=== PATIENT | male | born 1995 | race African-American/Black ===

== ENCOUNTER 2018-08-19 17:21 | Emergency (ER) | payer MEDICAID ==
[~2018-08-19] VITALS: Ht 182.9 cm; Wt 74.8 kg
[~2018-08-19 17:21] MED LIST: ADVAIR 100-501 EACH INH; ALBUTEROL SULF8.5 GM INH; PROAIR HFA8.5 GM INH
[2018-08-19 17:25] VITALS: BP 131/80
[2018-08-19] MEDS ORDERED: Tetanus/Diptheria/Pertussis Vaccine 0.5ml Syr IM ONE (17:45)
[2018-08-19] MEDS ORDERED: Bacitracin Oint UD TOPIC ONE (17:45)
[2018-08-19] MEDS ORDERED: LET 3ml Soln TOPIC ONE (17:45)
--- NOTE | 2018-08-19 17:47 | Emergency Room Report ---
History of Present Illness General Chief Complaint: Upper Extremity Injury Source: Patient Present Illness HPI 22-year-old male patient presents ER complaining of pain and left hand ring finger for 2 days. 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 Reports pain and swelling of left hand near nail. Denies nail avulsion. Reports he is ambidextrous, states he writes with his right hand. Reports took ibuprofen for pain, last dose given "a few hours ago". Denies loss of range of motion. Denies fever, chest pain, shortness of breath. States does not know tetanus vaccination status. Allergies: Coded Allergies: No Known Allergies (Unverified , 06/13/14) Patient History Past Medical History: see triage record Reviewed Nursing Documentation: PMH: Agreed; PSxH: Agreed Nursing Documentation-PMH Past Medical History: No History, Except For Hx Asthma: Yes Review of Systems All Other Systems: negative except mentioned in HPI Physical Exam Vital Signs Date Time Temp Pulse Resp B/P (MAP) Pulse Ox O2 Delivery O2 Flow Rate FiO2 08/19/18 17:23 98.8 76 131/80 99 Room Air Sp02 EP Interpretation: reviewed, normal General Appearance: well appearing, no apparent distress, alert, GCS 15, non- toxic Head: normocephalic, atraumatic Eyes: bilateral eye normal inspection, bilateral eye PERRL ENT: hearing grossly normal, normal pharynx, no angioedema, normal voice, uvula midline, moist mucus membranes Neck: full range of motion Respiratory: lungs clear, normal breath sounds, no rhonchi, no respiratory distress, no accessory muscle use, no wheezing, speaking full sentences Cardiovascular #1: regular rate, rhythm, no edema Cardiovascular #2: 2+ radial (R), 2+ radial (L) Musculoskeletal: back normal, digits/nails normal, gait/station normal, normal range of motion, non-tender, other - left hand ring finger: obvious paronychia, cuticle intact, fluctuant, not hemorrhagic, no drainage, no erythema, full range of motion of PIP and DIP joint with flexion and extension, cap refill less than 2 seconds, no subinguinal hematoma, no felon Skin: no rash Procedures Incision and Drainage Incision and Drainage : Consent: Verbal Site: left ring finger Blade Size: 11 I & D Procedure: betadine prep, sterile drapes applied, sterile dressing applied Wound Location: upper extremity - left hand Wound's Depth, Shape: superficial Wound Length (cm): 1 Wound Explored: contaminated Anesthesia: other - LET topical Splint Applied?: No Sling Applied?: No Patient Tolerated: Well Complications: None Medical Decision Making PA Attestation Dr. Jacobson is my supervising Physician whom patient management has been discussed with. Diagnostic Impression: Primary Impression: Paronychia ER Course Pt. presents to the ED c/o left ring finger pain. Ddx considered but are not limited to rash, cellulitis, abscess, felon, paronychia, hangnail, herpetic isis, flexor tenosynovitis. negative Kanavel signs, low suspicion for flexor tenosynovitis. Vital signs: are WNL, pt. is afebrile ED COURSE: updated tetanus and provided with pain medication. x-ray of left hand soft tissue swelling, no acute fracture per the preliminary reading. LET used for local anesthesia. I&D of paronychia performed. Pus expressed from finger. see procedure note. Patient finger no longer swollen, patient reports decrease in pain symptoms. Sterile dressing and Bacitracin applied to wound following procedure. Patient instructed to keep wound clean and dry and to follow-up with primary care provider in 2 days for wound check. ER precautions given. DISCHARGE -Rx provided for Bactrim Rx provided for clindamycin -Rx provided for Tylenol #3. site of present is, do not drink, drive, operate heavy machinery while taking medication. CURES reviewed. At this time pt. is stable for d/c to home. Patient resting comfortably, in no acute distress, nontoxic appearing, laughing and smiling. Will provide printed patient care instructions and any necessary prescriptions. Care plan and follow up instructions have been discussed with the patient prior to discharge. Patient instructed to follow-up with primary care provider in 2 - 3 days for wound recheck. Patient questions asked and answered. Patient reports understanding and agreement to treatment plan. ER precautions given. Patient instructed to return to ER immediately for any new or worsening of symptoms including but not limited to fever, worsening of pain symptoms, worsening of erythema, red streaking. - Please note that this Emergency Department Report was dictated using [employer] artist technology software, occasionally this can lead to erroneous entry secondary to interpretation by the dictation equipment. Other X-Ray Diagnostic Results Other X-Ray Diagnostic Results : X-Ray ordered: left hand # of Views/Limited Vs Complete: 3 View Indication: Pain EP Interpretation: Yes PA Xray: Interpretation reviewed, by supervising MD, and agrees with findings. Interpretation: no dislocation, no fractures, other - Soft tissue swelling Impression: No acute disease KG Scribdarryl Text Elliott Mars PA-Tawanna Last Vital Signs Date Time Temp Pulse Resp B/P (MAP) Pulse Ox O2 Delivery O2 Flow Rate FiO2 08/19/18 17:23 98.8 76 131/80 99 Room Air Status: improved Disposition: HOME, SELF-CARE Condition: Stable Scripts Bacitracin/Polymyxin B Sulfate (BACITRACIN-POLYMYXIN OINTMENT) 28.35 Gm Oint...g. 1 APPLIC TP BID, #28 GM Prov: Efrain Mars 08/19/18 Acetaminophen With Codeine (T#3) (TYLENOL #3 TAB*) Y Tab 1 TAB ORAL Q6HR PRN for For Pain, #10 TAB Prov: Efrain Mars 08/19/18 Clindamycin Hcl (CLINDAMYCIN HCL) 300 Mg Capsule 300 MG ORAL TID for 7 Days, #21 CAP Prov: Efrain Mars 08/19/18 Patient Instructions: Paronychia, [id number] Additional Instructions: Followup with primary care provider in 2-3 days or return to ER for wound check. Keep clean and dry. Take medications as directed. Tylenol #3 may drowsiness, do not take drinking, driving, operating heavy machinery. Patient questions asked and answered. ER precautions given, patient instructed to return to ER immediately for any new or worsening of symptoms. Efrain Mars Aug 19, 2018 17:47
--- NOTE | 2018-08-19 18:33 | Diagnostic Imaging Report ---
EXAM: XR Left Hand Complete, 3 or More Views CLINICAL HISTORY: PAIN TECHNIQUE: Frontal, lateral and oblique views of the left hand. COMPARISON: No relevant prior studies available. FINDINGS: Bones/joints: No acute displaced fracture or dislocation. Soft tissues: Distal 4th digit soft tissue swelling. No radiopaque foreign body. IMPRESSION: No acute displaced fracture or dislocation.
[2018-08-19] MEDS ORDERED: CLINDAMYCIN HC300 MG ORAL (18:38)
[2018-08-19] MEDS ORDERED: BACITRACIN-P28.35 GM TP (18:38)
[2018-08-19] MEDS ORDERED: ACETAMINOPHEN-1 EAC1 ORAL (18:38)
[2018-08-19 18:46] VITALS: BP 128/78
== END 2018-08-19 18:48 | disposition home or self-care (01) ==
LOC: EMR 18:44
DX: L03.012 Cellulitis of left finger (principal); Z23 Encounter for immunization
CPT/HCPCS: 10060; 90471; 90715; 99283